=== PATIENT | female | born 1945 | race Caucasian/White ===

== ENCOUNTER 2023-05-23 13:51 | Emergency (ER) | payer MEDICARE, OTHER, SELFPAY ==
[2023-05-23 14:16] VITALS: BP 118/41; PULSE 66; RESP 16; TEMP 37.1; O2SAT 99
--- NOTE | 2023-05-23 14:23 | ED.GENADULT ---
HPI - General Adult General Chief complaint: Upper Respiratory Infection Stated complaint: tired,lack of appetite,rash Time Seen by Provider: 05/23/23 14:23 Source: patient Mode of arrival: ambulatory Limitations: no limitations History of Present Illness HPI narrative: 78-year-old female presents with complaint of 2 days of decreased appetite, fatigue, headache. Reports appetite is better today and she was able to eat some scrambled aches. Today she noticed a itchy red rash to her entire body. Patient states she recently finished Bactrim prescription. Was on Bactrim for 1 week twice a day for urinary tract infection. Did not inform her primary care physician who prescribed Bactrim of the symptoms. Patient took COVID test due to her fatigue and headache and it was negative. All systems reviewed and negative except as noted above. Related Data Home Medications Medication Instructions Recorded Confirmed anastrozole 1 mg tablet mg 05/23/23 atorvastatin 10 mg tablet mg 05/23/23 celecoxib 200 mg capsule mg 05/23/23 doxazosin 8 mg tablet mg 05/23/23 hydralazine 50 mg tablet mg 05/23/23 omega-3 acid ethyl esters 1 gram PO 05/23/23 capsule oxybutynin chloride 5 mg tablet mg 05/23/23 spironolactone 25 mg tablet mg 05/23/23 sulfamethoxazole 800 tablet 05/23/23 mg-trimethoprim 160 mg tablet valsartan 320 tablet 05/23/23 mg-hydrochlorothiazide 25 mg tablet Allergies Allergy/AdvReac Type Severity Reaction Status Date / Time Sulfa (Sulfonamide Allergy Other Verified 05/23/23 14:28 Antibiotics) Review of Systems Review of Systems: CONSTITUTIONAL: Denies fever, chills, or sweats. Reports fatigue. EYES: Denies visual changes, redness, or discharge. ENT: Denies rhinorrhea, congestion, sore throat, or otalgia. CARDIOVASCULAR: Denies chest pain, palpitations, or edema. RESPIRATORY: Denies cough or dyspnea. GASTROINTESTINAL: Denies abdominal pain, nausea, vomiting, or diarrhea. Reports decreased appetite. GENITOURINARY: Denies dysuria or hematuria. SKIN: Reports generalized itchy rash. MUSCULOSKELETAL: Denies back pain, joint pain, or myalgia. NEUROLOGIC: Denies headache, numbness, or weakness. PSYCHIATRIC: Denies anxiety or depression. All other systems reviewed are negative, except as documented in HPI. PMFSH Comments At time of signature, agree with nursing past medical, surgical, social and family history. There is no relevant family history pertinent to the presenting complaint. Exam Narrative: GENERAL: This is a well-nourished, well-developed patient, in no apparent distress. HEAD: normocephalic, atraumatic. EYES: PERRL. Sclera clear/white. Vision is grossly intact. EARS: External ears normal NOSE: External nose normal NECK: Neck supple, non-tender without lymphadenopathy, masses or thyromegaly. CARDIOVASCULAR: Regular rate and rhythm without murmurs, gallops, or rubs. RESPIRATORY: Clear to auscultation. Breath sounds equal bilaterally. No wheezes, rales, or rhonchi. SKIN: warm, Dry, intact , good texture and turgor. Erythematous blotchy generalized rash. NEURO: awake, alert, and oriented to person, place and time. There were no obvious focal neurologic abnormalities. EXTREMITIES: No joint tenderness, effusion, or edema noted. Course Course Level of Care: Express Care Visit Vital Signs Vital signs: Vital Signs Temperature 37.1 C 05/23/23 14:16 Pulse Rate 66 05/23/23 14:16 Respiratory Rate 16 05/23/23 14:16 Blood Pressure 118/41 L 05/23/23 14:16 Pulse Oximetry 99 05/23/23 14:16 Oxygen Delivery Room Air 05/23/23 14:16 Temperature 37.1 C 05/23/23 14:16 Pulse Rate 66 05/23/23 14:16 Respiratory Rate 16 05/23/23 14:16 Blood Pressure 118/41 L 05/23/23 14:16 Pulse Oximetry 99 05/23/23 14:16 Oxygen Delivery Room Air 05/23/23 14:16 Reviewed Medical Decision Making MDM Narrative Medical decision making narrative: Tita
== END 2023-05-23 14:46 | disposition home or self-care (01) ==
PROVIDERS: Emergency Provider Nurse Practitioner Family; PCP Physician Assistant Medical
DX: L27.0 Generalized skin eruption due to drugs and medicaments taken internally (principal); T36.8X5A Adverse effect of other systemic antibiotics, initial encounter; Z79.899 Other long term (current) drug therapy
CPT/HCPCS: 87804; 99203; G0463

== ENCOUNTER 2023-07-03 11:43 | Emergency (ER) | payer MEDICARE, OTHER, SELFPAY ==
--- NOTE | ~2023-07-03 | XR_ITS ---
EXAMINATION: XR chest 2V DATE: 07/03/2023 12:10 INDICATION: Productive cough TECHNIQUE: PA and lateral views of the chest are obtained. COMPARISON: None available FINDINGS: The lungs are free of acute opacities. No pleural effusion or pneumothorax. The cardiomedia stinal silhouette is normal. There are bridging osteophytes at multiple levels in the spine, consiste nt with diffuse idiopathic skeletal hyperostosis (DISH). Surgical clips in the right upper quadrant a re likely from prior cholecystectomy. Surgical clips are also noted in the right breast. IMPRESSION: 1. No acute cardiopulmonary abnormality. Reviewed, dictated and finalized at location F. [employer]
--- NOTE | 2023-07-03 11:44 | ED.URI ---
HPI - URI/Sore Throat General Chief Complaint: Upper Respiratory Infection Stated Complaint: cough Time Seen by Provider: 07/03/23 11:43 Source: patient Mode of arrival: ambulatory Limitations: no limitations History of Present Illness HPI Narrative: Torri is a 78-year-old female patient presenting to the clinic today with complaints of a productive cough x1 week. She reports the cough seems to be getting worse but she is still having coughing at night. States that sputum production was very thick at 1st and now it has been down but states that she has a croupy cough now. She denies any fever, chills, or shortness of breath. Nonsmoker Related Data Home Medications Medication Instructions Recorded Confirmed anastrozole 1 mg tablet 1 mg PO DAILY 05/23/23 07/03/23 atorvastatin 10 mg tablet 10 mg PO DAILY 05/23/23 07/03/23 celecoxib 200 mg capsule 200 mg PO DAILY 05/23/23 07/03/23 doxazosin 8 mg tablet 8 mg PO DAILY 05/23/23 07/03/23 hydralazine 50 mg tablet 50 mg PO DAILY 05/23/23 07/03/23 omega-3 acid ethyl esters 1 gram 1 g PO DAILY 05/23/23 07/03/23 capsule oxybutynin chloride 5 mg tablet 5 mg PO DAILY 05/23/23 07/03/23 spironolactone 25 mg tablet 25 mg PO DAILY 05/23/23 07/03/23 valsartan 320 1 tablet PO DAILY 05/23/23 07/03/23 mg-hydrochlorothiazide 25 mg tablet Allergies Allergy/AdvReac Type Severity Reaction Status Date / Time amlodipine Allergy Intermediate Swelling Verified 07/03/23 12:01 Sulfa (Sulfonamide Allergy Unknown Other Verified 07/03/23 12:01 Antibiotics) Review of Systems Review of Systems: Pertinent positives per HPI. Patient denies any fever, chills, rash, headache, visual changes, dizziness, runny nose, sore throat, shortness of breath, chest pain, palpitations, nausea, vomiting, diarrhea, constipation, abdominal pain, or any urinary issues. PMFSH Comments At the time of my signature, I reviewed and agree with the nursing past medical, surgical, social, and family history. There is no relevant family history pertinent to the patient complaint. Exam Narrative: General: Well-developed, well nourished, in no apparent distress Head: Normocephalic, atraumatic Eyes: Pupils equally round and reactive to light bilaterally, EOM intact, sclera and conjunctive clear, no discharge, lids normal Ears: TMs intact and clear, ear canals clear, no drainage, grossly hearing normal. Nose: Nares patent, clear nasal discharge, no inflammation, no sinus tenderness. Mouth: Oropharynx without lesions or masses, good dentition, MMM. Neck: Supple, trachea midline, no enlargement of anterior or posterior cervical nodes, no thyroid masses or goiter palpable. Cardio: Regular rate and rhythm, s1 and s2 normal, no murmur appreciated. Resp: Clear to auscultation bilaterally anteriorly and posteriorly, no rhonchi, rales, wheezing or rubs Course Course Emergency Course: Portions of this record may have been created with voice recognition software. Level of Care: Express Care Visit Vital Signs Vital signs: Vital signs reviewed MDM - URI/Sore Throat MDM Narrative Medical decision making narrative: At the time of visit patient is resting comfortably on the exam table. Chest x-ray was performed and was negative for any sign of pneumonia. I suspect she has URI with cough and congestion. I will send in prescription for albuterol, Tessalon Perles, and prednisone. Supportive measures were discussed with the patient she voiced understanding discharge instructions and agrees to treatment plan. Differential Diagnosis Differential diagnosis: Likely upper respiratory infection, otitis media, sinusitis, viral infection, bronchitis, influenza, pharyngitis and other (COVID) Discharge Plan Discharge Clinical Impression: Upper respiratory infection with cough and congestion Patient Disposition: Home, Self-Care Condition: Stable Instructions: Antibiotic Form, Upper Respiratory Infection (ED) A
[2023-07-03 11:54] VITALS: BP 150/73; PULSE 89; RESP 16; TEMP 36.5; O2SAT 97
[2023-07-03 12:01] VITALS: BP 150/73; PULSE 89; RESP 16; TEMP 36.5; O2SAT 97
== END 2023-07-03 12:41 | disposition home or self-care (01) ==
PROVIDERS: Emergency Provider Nurse Practitioner Family; PCP Physician Assistant Medical
DX: J06.9 Acute upper respiratory infection, unspecified (principal); I25.10 Atherosclerotic heart disease of native coronary artery without angina pectoris; E78.00 Pure hypercholesterolemia, unspecified; I10 Essential (primary) hypertension; K21.9 Gastro-esophageal reflux disease without esophagitis; M19.90 Unspecified osteoarthritis, unspecified site; F41.9 Anxiety disorder, unspecified
CPT/HCPCS: 71046; 99213; G0463